=== PATIENT | male | born 1970 | race Caucasian/White ===

== ENCOUNTER 2024-01-03 19:44 | Inpatient (IN) ==
[2024-01-03] MEDS ORDERED: Lactated Ringers 1000 ml BAG 1,000 ML IV SCH (20:00)
[2024-01-03] MEDS: Ondansetron 4 mg VIAL 2 MG/ML 2 ml VIAL IV ONE (20:16)
[2024-01-03] MEDS: NS 0.9% 1000 ml BAG 1,000 ML IV ONE (20:16)
[2024-01-03 20:58] LABS: ABS Lymphocytes 0.6 10^3/uL (1.0-4.8); ABS Monocytes 0.5 10^3/uL (0.0-1.1); ABS Neutrophils 12.4 10^3/uL (1.5-7.6); ABS Nucleated RBC 0.02 10^3/ul; Hematocrit 44.9 % (38-53); Hemoglobin 15.4 g/dL (13.2-16.3); Lymphocyte % 4.5 %; Mean Corpuscular Hemoglobin 29.3 pg (27-33); Mean Corpuscular Hgb Conc 34.3 g/dL (31-36); Mean Corpuscular Volume 85.3 fL (80-97); Nucleated Red Blood Cells % 0.1 %/100WBC (0.0-0.8); Platelet Count 360 10^3/uL (150-450); Red Blood Count 5.26 10^6/uL (4.06-5.63); Red Cell Distribution Width 13.3 % (12-17); White Blood Count 13.6 10^3/uL (3.6-10.2)
[2024-01-03 21:10] LABS: ALT 155 U/L (7-52); Albumin/Globulin Ratio 1.8 (1-3); Alkaline Phosphatase 84 U/L (35-149); Anion Gap 13 mmol/L (2-16); Blood Urea Nitrogen 9 mg/dL (6-24); CO2 Carbon Dioxide 25 mmol/L (22-32); Calcium 10.4 mg/dL (8.6-10.3); Chloride 95 mmol/L (101-111); Creatinine, Serum 0.79 mg/dL (0.67-1.17); Globulin 2.8 g/dL (2-4); Glucose 121 mg/dL (70-100); Sodium 133 mmol/L (135-145); Total Bilirubin 0.7 mg/dL (0.2-1.0); Total Protein 7.8 g/dL (6.4-8.9); eGFR CKD-EPI 107.6 (>60)
[2024-01-03] MEDS: HYDROmorphone 0.5 MG/0.5 ML SYRINGE IV SLOW PU PRN (21:33)
[2024-01-03] MEDS: HYDROcodone/ACET. 7.5/325 LIQ 15 ML UDC PO PRN (22:52)
[2024-01-03] MEDS: Lactated Ringers 1000 ml BAG 1,000 ML IV SCH (22:53)
[2024-01-04 07:00] LABS: ABS Lymphocytes 1.6 10^3/uL (1.0-4.8); ABS Monocytes 1.1 10^3/uL (0.0-1.1); ABS Neutrophils 11.7 10^3/uL (1.5-7.6); Eosinophil % 0.2 %; Hematocrit 40.4 % (38-53); Hemoglobin 13.7 g/dL (13.2-16.3); Lymphocyte % 10.8 %; Mean Corpuscular Hemoglobin 29.1 pg (27-33); Mean Corpuscular Hgb Conc 33.9 g/dL (31-36); Mean Corpuscular Volume 85.8 fL (80-97); Mean Platelet Volume 8.8 fL (7.5-11.2); Platelet Count 298 10^3/uL (150-450); Red Blood Count 4.71 10^6/uL (4.06-5.63); Red Cell Distribution Width 13.8 % (12-17); White Blood Count 14.4 10^3/uL (3.6-10.2)
[2024-01-04 07:18] LABS: Calcium 9.2 mg/dL (8.6-10.3); Creatinine, Serum 0.9 mg/dL (0.67-1.17); Potassium 4.1 mmol/L (3.5-5.0); Potassium Redraw 4.1 mmol/L (3.5-5.0); eGFR CKD-EPI 103.4 (>60)
[2024-01-04] MEDS: Ondansetron 4 mg VIAL 2 MG/ML 2 ml VIAL IV PRN (12:07)
[2024-01-04] MEDS: D5W 1/2 NS w/KCL 20 MEQ IVFLUID 1000 ML IV SCH (20:55)
[2024-01-05 05:55] LABS: ABS Eosinophils 0.2 10^3/uL (0.0-0.5); ABS Lymphocytes 1.2 10^3/uL (1.0-4.8); ABS Monocytes 0.8 10^3/uL (0.0-1.1); ABS Neutrophils 8.2 10^3/uL (1.5-7.6); ABS Nucleated RBC 0.01 10^3/ul; Eosinophil % 1.8 %; Hematocrit 39.7 % (38-53); Hemoglobin 13.6 g/dL (13.2-16.3); Lymphocyte % 11.1 %; Mean Corpuscular Hemoglobin 29.4 pg (27-33); Mean Corpuscular Hgb Conc 34.4 g/dL (31-36); Mean Corpuscular Volume 85.6 fL (80-97); Mean Platelet Volume 8.1 fL (7.5-11.2); Platelet Count 273 10^3/uL (150-450); Red Blood Count 4.64 10^6/uL (4.06-5.63); Red Cell Distribution Width 13.8 % (12-17); White Blood Count 10.4 10^3/uL (3.6-10.2)
[2024-01-05 06:44] LABS: Calcium 9.1 mg/dL (8.6-10.3); Creatinine, Serum 0.77 mg/dL (0.67-1.17); Potassium 4.4 mmol/L (3.5-5.0); eGFR CKD-EPI 108.4 (>60)
[2024-01-05 06:47] LABS: Albumin 4.3 g/dL (3.2-5.2); Albumin/Globulin Ratio 2.2 (1-3); Total Bilirubin 0.7 mg/dL (0.2-1.0); Total Protein 6.3 g/dL (6.4-8.9)
[2024-01-05] MEDS: Iohexol 300 (CONTRAST) 10 ML SDV IV ONE (08:26)
[2024-01-05] MEDS ORDERED: Bupivacaine 0.25% EPI 200,000 30 ML SDV ONE (12:45)
[2024-01-05] MEDS ORDERED: Metoclopramide 5 MG/ML VIAL (10 mg) IV PRN (13:11)
[2024-01-05] MEDS ORDERED: Naloxone 0.4 mg VIAL 0.4 mg/ml 1 ml VIAL IV PRN (13:11)
[2024-01-05] MEDS ORDERED: Propofol 10 MG/ML 20 ML BTL ONE (13:19)
[2024-01-05] MEDS ORDERED: Dexamethasone IV 4 MG/ML VIAL 1 ml VIAL ONE (13:19)
[2024-01-05] MEDS ORDERED: Ondansetron 4 mg VIAL 2 MG/ML 2 ml VIAL ONE (13:19)
[2024-01-05] MEDS ORDERED: Lidocaine 2% PF 5 ML VIAL ONE (13:19)
[2024-01-05] MEDS ORDERED: Midazolam 2 mg/2 ml VIAL 1 mg/ml 2 ml VIAL (2 mg) ONE (13:21)
[2024-01-05] MEDS ORDERED: fentaNYL 100 mcg/2 ml 50 MCG/ML VIAL ONE (13:21)
[2024-01-05] MEDS ORDERED: ceFAZolin 2 GM in NS PREMIX 2 GM/100 ML BAG IVPB ONE (13:40)
[2024-01-05] MEDS ORDERED: Rocuronium 50 mg VIAL 10 mg/ml 5 ml VIAL (50 mg) ONE ×2 (14:34→14:35)
[2024-01-05] MEDS ORDERED: Acetaminophen IV 1 GM/100ML 1,000 MG/100 ML BAG IV ONE (15:03)
[2024-01-05] MEDS ORDERED: HYDROmorphone 0.5 MG/0.5 ML SYRINGE ONE (15:36)
[2024-01-05] MEDS ORDERED: Prochlorperazine 5 mg/ml 2 ml VIAL (10 mg) ONE (16:08)
[2024-01-05] MEDS: Buffered Lidocaine 1% SYRIN 1 ml INTRADERM ONE (17:44)
[2024-01-05] MEDS: D5W 1/2 NS KCl 20 meq 1000 ml 1,000 ML IV SCH (17:45)
[2024-01-05] MEDS: Lactated Ringers 1000 ml BAG 1,000 ML IV SCH (17:46)
[2024-01-05] MEDS: Scopolamine 1 mg/72hr PATCH TRANSDERM ONE (18:05)
[2024-01-06 06:49] LABS: ABS Lymphocytes 0.9 10^3/uL (1.0-4.8); ABS Monocytes 0.8 10^3/uL (0.0-1.1); ABS Neutrophils 11.7 10^3/uL (1.5-7.6); Eosinophil % 0.1 %; Hematocrit 39.8 % (38-53); Hemoglobin 14.1 g/dL (13.2-16.3); Lymphocyte % 6.6 %; Mean Corpuscular Hemoglobin 29.8 pg (27-33); Mean Corpuscular Hgb Conc 35.3 g/dL (31-36); Mean Corpuscular Volume 84.3 fL (80-97); Mean Platelet Volume 8.4 fL (7.5-11.2); Platelet Count 291 10^3/uL (150-450); Red Blood Count 4.73 10^6/uL (4.06-5.63); Red Cell Distribution Width 13.3 % (12-17); White Blood Count 13.4 10^3/uL (3.6-10.2)
[2024-01-06 07:29] LABS: Calcium 8.9 mg/dL (8.6-10.3); Potassium 4.4 mmol/L (3.5-5.0)
[2024-01-06 07:32] LABS: Albumin 4.1 g/dL (3.2-5.2); Albumin/Globulin Ratio 1.8 (1-3); Globulin 2.3 g/dL (2-4); Total Bilirubin 0.8 mg/dL (0.2-1.0); Total Protein 6.4 g/dL (6.4-8.9)
[2024-01-06 08:06] LABS: Creatinine, Serum 0.79 mg/dL (0.67-1.17); eGFR CKD-EPI 107.6 (>60)
[2024-01-06] MEDS: Pantoprazole VIAL 40 MG VIAL IV SCH (16:35)
[2024-01-07 07:26] LABS: Albumin 4.3 g/dL (3.2-5.2); Albumin/Globulin Ratio 1.9 (1-3); Direct Bilirubin 0.2 mg/dL (0.03-0.18); Globulin 2.3 g/dL (2-4); Indirect Bilirubin 0.9 mg/dL (0.3-1.0); Total Bilirubin 1.1 mg/dL (0.2-1.0); Total Protein 6.6 g/dL (6.4-8.9)
[2024-01-07] MEDS: HYDROcodone/ACETAMIN 5/325 mg TAB PO PRN (13:30)
[2024-01-08 10:20] VITALS: BP 134/94
== END 2024-01-08 10:40 | disposition home or self-care (01) | DRG 220 ==
LOC: EDHOLD 19:44 → ED 19:44 → SSU 01-04 15:23
PROVIDERS: ADMIT Surgery; ATTEND Surgery